=== PATIENT | male | born 1960 ===

== ENCOUNTER → 2024-08-15 18:41 | Outpatient (REF) | payer BC, SELFPAY | LOC: MRI 3T 18:41 | PROVIDERS: ATTENDING PHYSICIAN Urology; FAMILY PHYSICIAN Internal Medicine | DX: R97.20 Elevated prostate specific antigen [PSA] (principal) | CPT/HCPCS: 72197; A9575 ==

== ENCOUNTER → 2024-11-11 15:44 | Outpatient (REF) | payer BC, SELFPAY | LOC: PAVMRI 15:44 | PROVIDERS: ATTENDING PHYSICIAN Specialist; FAMILY PHYSICIAN Internal Medicine | DX: G20.C Parkinsonism, unspecified (principal); H02.402 Unspecified ptosis of left eyelid | CPT/HCPCS: 70551 ==